=== PATIENT | male | born 1970 | race Hispanic/Latino ===

== ENCOUNTER 2017-06-14 20:29 | Inpatient (IN) | payer OTHER ==
[2017-06-14] MEDS ORDERED: Lidocaine/Epi 1% 1:100000 20 ML IJ ONE (20:49)
[2017-06-14] MEDS ORDERED: Multivitamin (MVI) 10 ML, Thiamine 100 MG, Folic Acid 1 MG in Sodium Chloride 0.9% 1,00... IV ONE (21:47)
[2017-06-14] MEDS ORDERED: Sodium Chloride 0.9% 1,000 ML IV STA (21:47)
[2017-06-14] MEDS ORDERED: Tdap Vaccine 0.5 ml Vial (10-64 yrs) IM ONE ×2 (22:10→22:24)
[2017-06-14 22:18] LABS: BASO % 0.4 % (0.0-2.0); EOS # 0.1 K/uL (0.0-0.7); EOS % 1.1 % (0.0-4.0); HEMOGLOBIN 15.5 g/dL (12.0-18.0); LYMPH # 3.2 K/uL (1.0-4.3); LYMPH % 24.8 % (20.0-40.0); MEAN CELL VOLUME 93.1 fl (80.0-94.0); MEAN CORPUSCULAR HGB CONC 33.4 g/dL (33.0-37.0); MEAN PLATELET VOLUME 8.5 fl (7.2-11.7); MONO # 0.6 K/uL (0.0-0.8); MONO % 4.9 % (0.0-10.0); NEUT # 8.9 K/uL (1.8-7.0); NEUT % 68.8 % (50.0-75.0); NRBC % 0.1 % (0.0-0.0); RBC 4.99 Mil/uL (4.40-5.90); RED CELL DISTRIBUTION WIDTH 13.1 % (11.5-14.5); WHITE BLOOD COUNT 12.9 K/uL (4.8-10.8)
[2017-06-14] MEDS ORDERED: Lidocaine 1% w Epi 1:100,000 Inj ONE (22:19)
--- NOTE | 2017-06-14 22:20 | ED PDOC ---
HPI: Psych/Substance Abuse Time Seen by Provider: 06/14/17 20:40 Chief Complaint (Nursing): Alcohol Ingestion Chief Complaint (Provider): ETOH History Per: EMS History/Exam Limitations: intoxication Additional Complaint(s): 46 y/o male brought in by EMS for alcohol intoxication. Patient had witnessed fall and EMS was called to find patient intoxicated with chin laceration. HPI limited due to patients current state. Past Medical History Reviewed: Historical Data, Nursing Documentation, Vital Signs Vital Signs: Last Vital Signs Temp 98.0 F 06/14/17 20:30 Pulse 105 H 06/14/17 20:30 Resp 16 06/14/17 20:30 BP 131/88 06/14/17 20:30 Pulse Ox 98 06/14/17 20:30 - Family History Family History: States: No Known Family Hx - Home Medications Home Medications: Ambulatory Orders Medication Instructions Recorded Unobtainable 06/15/17 - Allergies Allergies/Adverse Reactions: Allergies Allergy/AdvReac Type Severity Reaction Status Date / Time Unobtainable Allergy Verified 06/14/17 20:33 Review of Systems Review Of Systems: ROS cannot be obtained secondary to pt's inabilty to answer questions. Physical Exam - Reviewed Nursing Documentation Reviewed: Yes Vital Signs Reviewed: Yes - Physical Exam Appears: Positive for: Well, Non-toxic, Uncomfortable (agitated; swinging arms) Head Exam: Positive for: ATRAUMATIC, NORMAL INSPECTION, NORMOCEPHALIC Skin: Positive for: Rash (1.5cm chin laceration; no active bleeding or surrounding hematoma) Eye Exam: Positive for: Normal appearance, EOMI, PERRL ENT: Positive for: Normal ENT Inspection Cardiovascular/Chest: Positive for: Regular Rate, Rhythm Respiratory: Positive for: Normal Breath Sounds Gastrointestinal/Abdominal: Positive for: Normal Exam Back: Positive for: Normal Inspection Extremity: Positive for: Normal ROM Neurologic/Psych: Positive for: Alert - Laboratory Results Result Diagrams: 06/15/17 04:30 06/15/17 04:30 - ECG O2 Sat by Pulse Oximetry: 98 Pulse Ox Interpretation: Normal - Radiology X-Ray: Viewed By Il X-Ray Interpretation: No Acute Disease - Progress ED Course And Treament: Patient swinging at ED staff, attempting to get out of stretcher with unsteady gait. Patient unable to comply with alternative measures offered due to intoxication; placed in 4 point restraints and medicated for agitation/safety. Patient actively vomiting, bright red blood noted in vomitus. IV protonix, IV fluids ordered Dr. Torres spoke with Dr. Lujan, Hospitalist on-call, regarding placement in ICU Dr. Torres spoke with Dr. Erickson for GI consult. Chin laceration irrigated with 150mL NS. Area anesthetized with 1% lido with epi. 5 size 5'0 nylon sutures placed. Bacitacin and bandage applied. Adacel IM ordered EXAM: CT Head Without Intravenous Contrast EXAM DATE/TIME: 06/14/2017 8:49 PM CLINICAL HISTORY: 46 years old, male; Injury or trauma; Fall; Initial encounter; Blunt trauma ( contusions or hematomas); Additional info: ETOH, fall TECHNIQUE: Axial computed tomography images of the head/brain without intravenous contrast. All CT scans at this facility use one or more dose reduction techniques, viz.: automated exposure control; ma/kV adjustment per patient size (including targeted exams where dose is matched to indication; i.e. head); or iterative reconstruction technique. Coronal and sagittal reformatted images were created and reviewed. COMPARISON: There are no prior studies for comparison. FINDINGS: Artifacts: Motion artifact degrades image quality. Brain: Ventricles are normal in size and configuration. There is no midline shift. There are no intraaxial or extra-axial mass lesions or areas of hemorrhage. There are no abnormal fluid collections. Vital-white differentiation is maintained. Ventricles: See above. Bones: Cranial vault is intact. Soft tissues: unremarkable Sinuses: There is maxillary, ethmoid and frontal sinusitis Ears and mastoids: Middle ears and mastoids are unremarkable Orbits: Orbital contents are unremarkable. IMPRESSION: Slightly limited by patient motion, no acute intracranial abnormality; sinusitis Patient fiance at bedside, states he used to drink frequently, but for the last 2 months he has not been drinking. - Critical Care Total Time (In Min): 60 Disposition - Clinical Impression Clinical Impression: Hematemesis, ETOH abuse, Chin laceration - Disposition Disposition Time: 22:10 Condition: GUARDED
[2017-06-14 22:30] LABS: INR 0.9 (0.9-1.2); PARTIAL THROMBOPLASTIN TIME 35.9 Seconds (25.6-37.1); PROTHROMBIN TIME 10.1 Seconds (9.8-13.1)
[2017-06-14 22:32] LABS: ALB/GLOB RATIO 1.3 (1.0-2.1); ALBUMIN 4.6 g/dL (3.5-5.0); ALT/SGPT 55 U/L (21-72); AST/SGOT 61 U/L (17-59); BLOOD UREA NITROGEN 19 mg/dl (9-20); CALCIUM 9.4 mg/dL (8.4-10.2); GFR AFRICAN-AMERICAN > 60; GFR NON-AFRICAN AMERICAN > 60
[2017-06-14] MEDS: Pantoprazole 40 MG in Sodium Chloride 0.9% 100 ML IV SCH (23:06)
--- NOTE | 2017-06-14 23:09 | CP.PCM.HP ---
History of Present Illness - History of Present Illness History of Present Illness: CC: EtOH intoxication, hematemesis HPI: This is a 46 y/o male brought in by EMS after he had a witnessed fall. He was intoxicated, and had a chin lac on admission. Patient was initially very agitated and required sedation. Currently he is sedated, and not able to provide any history. ROS: unable to provide MHx/SHx: EtOH abuse, other than that none can be obtained Allergies: unobtainable Medications: unobtainable Family Hx: unobtainable Social Hx: obviously EtOH abuse, otherwise, cannot be obtained Present on Admission - Present on Admission Any Indicators Present on Admission: No Past Patient History - Infectious Disease Hx of Infectious Diseases: None - Past Social History Smoking Status: Unknown If Ever Smoked - PSYCHIATRIC Hx Substance Use: No (unknown) Meds Allergies/Adverse Reactions: Allergies Allergy/AdvReac Type Severity Reaction Status Date / Time Unobtainable Allergy Verified 06/14/17 20:33 Physical Exam - Constitutional Additional comments: sedated, rousable - Head Exam Additional comments: chin lac - Eye Exam Eye Exam: EOMI, PERRL - ENT Exam ENT Exam: Mucous Membranes Moist - Neck Exam Neck exam: Positive for: Full Rom - Respiratory Exam Respiratory Exam: Clear to Auscultation Bilateral, NORMAL BREATHING PATTERN - Cardiovascular Exam Cardiovascular Exam: Tachycardia, +S1, +S2 - GI/Abdominal Exam GI & Abdominal Exam: Normal Bowel Sounds, Soft - Extremities Exam Extremities exam: Positive for: full ROM, normal inspection - Neurological Exam Neurological exam: Alert, CN II-XII Intact, Oriented x3 - Psychiatric Exam Psychiatric exam: Normal Affect, Normal Mood - Skin Skin Exam: Dry, Warm Results - Vital Signs Recent Vital Signs: Last Vital Signs Temp 98.0 F 06/14/17 20:30 Pulse 105 H 06/14/17 20:30 Resp 16 06/14/17 20:30 BP 131/88 06/14/17 20:30 Pulse Ox 98 06/14/17 23:01 - Labs Result Diagrams: 06/14/17 22:00 06/14/17 22:00 Labs: Laboratory Results - last 24 hr 06/14/17 06/14/17 06/14/17 21:51 22:00 22:00 WBC 12.9 H RBC 4.99 Hgb 15.5 Hct 46.5 MCV 93.1 MCH 31.0 MCHC 33.4 RDW 13.1 Plt Count 243 MPV 8.5 Neut % (Auto) 68.8 Lymph % (Auto) 24.8 [place] % (Auto) 4.9 Eos % (Auto) 1.1 Baso % (Auto) 0.4 Neut # (Auto) 8.9 H Lymph # (Auto) 3.2 [place] # (Auto) 0.6 Eos # (Auto) 0.1 Baso # (Auto) 0.0 PT INR APTT Sodium 148 Potassium 4.5 Chloride 106 Carbon Dioxide 21 L Anion Gap 26 H BUN 19 Creatinine 1.0 Est GFR ( Amer) > 60 Est GFR (Non-Af Amer) > 60 POC Glucose (mg/dL) 97 Random Glucose 109 Calcium 9.4 Total Bilirubin 0.6 AST 61 H ALT 55 Alkaline Phosphatase 54 Total Protein 8.3 H Albumin 4.6 Globulin 3.7 Albumin/Globulin Ratio 1.3 Alcohol, Quantitative 404 H* BBK History Checked 06/14/17 06/14/17 22:05 22:08 WBC RBC Hgb Hct MCV MCH MCHC RDW Plt Count MPV Neut % (Auto) Lymph % (Auto) [place] % (Auto) Eos % (Auto) Baso % (Auto) Neut # (Auto) Lymph # (Auto) [place] # (Auto) Eos # (Auto) Baso # (Auto) PT 10.1 INR 0.9 APTT 35.9 Sodium Potassium Chloride Carbon Dioxide Anion Gap BUN Creatinine Est GFR ( Amer) Est GFR (Non-Af Amer) POC Glucose (mg/dL) Random Glucose Calcium Total Bilirubin AST ALT Alkaline Phosphatase Total Protein Albumin Globulin Albumin/Globulin Ratio Alcohol, Quantitative BBK History Checked No verified bt - Imaging and Cardiology CT scan - head Status: Pending Chest x-ray Status: Image reviewed by me (unremarkable) Assessment & Plan (1) Hematemesis Assessment and Plan: 46 y/o male, likely with heavy EtOH use who comes in intoxicated and with hematemesis; cannot r/o variceal bleeding -Admit ICU -NPO, IVF -- banana bag x 1, then LR -Started protonix and octreotide gtt -Started Ceftriaxone for prophylaxis in setting of hematemeisis -Zofran for n/v -Repeat CBC in ~5-6 hours; patient is type/screened -GI consult for AM -SCDs only for DVT PPx Status: Acute (2) Elevated ETOH level Status: Acute (3) ETOH abuse Status: Acute
[2017-06-15] MEDS ORDERED: cefTRIAXone (Rocephin) 1 gm Inj ONE (00:30)
--- NOTE | 2017-06-15 01:25 | CT ---
EXAM: CT Head Without Intravenous Contrast EXAM DATE/TIME: 06/14/2017 8:49 PM CLINICAL HISTORY: 46 years old, male; Injury or trauma; Fall; Initial encounter; Blunt trauma (contusions or hematomas); Additional info: ETOH, fall TECHNIQUE: Axial computed tomography images of the head/brain without intravenous contrast. All CT scans at this facility use one or more dose reduction techniques, viz.: automated exposure control; ma/kV adjustment per patient size (including targeted exams where dose is matched to indication; i.e. head); or iterative reconstruction technique. Coronal and sagittal reformatted images were created and reviewed. COMPARISON: There are no prior studies for comparison. FINDINGS: Artifacts: Motion artifact degrades image quality. Brain: Ventricles are normal in size and configuration. There is no midline shift. There are no intra-axial or extra-axial mass lesions or areas of hemorrhage. There are no abnormal fluid collections. Vital-white differentiation is maintained. Ventricles: See above. Bones: Cranial vault is intact. Soft tissues: unremarkable Sinuses: There is maxillary, ethmoid and frontal sinusitis Ears and mastoids: Middle ears and mastoids are unremarkable Orbits: Orbital contents are unremarkable. IMPRESSION: Slightly limited by patient motion, no acute intracranial abnormality; sinusitis
[2017-06-15 02:02] VITALS: BMI 27.6
[2017-06-15] MEDS: Pantoprazole 40 MG in Sodium Chloride 0.9% 100 ML IV SCH (03:25)
[2017-06-15 05:18] LABS: BLOOD UREA NITROGEN 14 mg/dl (9-20); GFR AFRICAN-AMERICAN > 60; GFR NON-AFRICAN AMERICAN > 60
[2017-06-15 05:19] LABS: CALCIUM 8.2 mg/dL (8.4-10.2)
[2017-06-15 05:27] LABS: HEMOGLOBIN 14.2 g/dL (12.0-18.0); MEAN CELL VOLUME 93.6 fl (80.0-94.0); MEAN CORPUSCULAR HEMOGLOBIN 31.2 pg (27.0-31.0); MEAN CORPUSCULAR HGB CONC 33.4 g/dL (33.0-37.0); RBC 4.55 Mil/uL (4.40-5.90); RED CELL DISTRIBUTION WIDTH 13.3 % (11.5-14.5)
--- NOTE | 2017-06-15 08:01 | CP.CCUPN ---
CCU Subjective - Physician Review Subjective (Free Text): 46M admitted with ETOH intoxication, and s/p fall, CT Head negative, had + hematemesis in ER, upgraded to ICU overnight for observation, no further hematemesis, arousable from sleep; denies any nausea / vomiting nor abdominal pain now. Poor historian and uncooperative, required Haldol overnight for sedation, now on 1:1 and GF is at the bedside as well. GF/Fianc states he recently resumed ETOH after stopping for 2 months, possible binge drinking this episode. Denies any h/o of previous UGI bleeding. Remains on Octreotide and PPi drip, serial HGb results reviewed. Other Vitals and I/Os reviewed. No Fever spikes overnight. ROS: No other pertinent negs or positives on 10+ system review. Allergies; NKDA Home meds: None PMSFH: All other historical Nursing and physician documentation reviewed to date; no new pertinent info noted relevant to current medical problems. CXR and CT head unable to be accessed due to PACS failure. EXAM- HEENT: no icterus, no gaze preference, pupils equal and reactive, no icterus NECK: No JVD, supple, carotids equal upstroke bilat/no bruits CHEST: decreased BS bases, otherwise clear bilat, no wheezes audible HEART: regular distant, S1S2, no rubs. ABD: soft, no distention, no tympany, no palp tenderness, BS hypoactive EXT: No edema. No peripheral/ digital cyanosis, no calf tenderness or palpable cords, distal pulses intact and symmetrical. NEURO: no gross focal motor deficits SKIN: no rashes, warm and dry. LABS: WBC= 8.0 HGB= 14.2 PLTs= 211K COAGS normal Na= 147 K= 4.6 CL= 108 HCO3= 23 BUN/Cr= 14/1.0 BS= 127 MAJOR PROBLEMS: 1. UGI Bleed, r/o ETOH gastritis, vs portal hypertensive bleed 2. Azotemia 3. ETOH Intoxication PLAN; 1. Serial HGB, IVF hydration. PPI drip and Octreotide pending GI eval. 2. Empiric abx coverage noted. 3. Hep ABC screen, US abdomen. CCU Objective - Vital Signs / Intake & Output Vital Signs (Last 4 hours): Vital Signs Pulse Resp BP Pulse Ox 06/15/17 06:00 104 H 17 94/59 L 96 06/15/17 05:51 98 Intake and Output (Last 8hrs): Intake & Output 06/14/17 06/15/17 06/15/17 22:59 06:59 14:59 Intake Total 750 Output Total 250 Balance 500 Weight 170 lb 182 lb Intake: IV 750 Output: Urine 250 Urine, Voided 250 - Medications Active Medications: Active Medications Generic Name Dose Route Start Last Admin Trade Name Freq PRN Reason Stop Dose Admin Pantoprazole Sodium 40 mg/ 100 mls @ 20 mls/hr 06/14/17 22:15 06/15/17 03:25 Sodium Chloride IV 20 mls/hr .Q5H SYLVIE Administration 8 MG/HR Ceftriaxone Sodium 1 gm/ 100 mls @ 100 mls/hr 06/15/17 09:00 Dextrose IVPB DAILY SYLVIE Protocol Octreotide Acetate 1,250 mcg/ 252.5 mls @ 10.1 mls/hr 06/14/17 23:00 00:42 Sodium Chloride IV 10.1 mls/hr .Q24H SYLVIE Administration 50 MCG/HR Lactated Ringer's 1,000 mls @ 100 mls/hr 06/14/17 23:00 Lactated Ringer's IV 06/15/17 18:59 .Q10H SYLVIE Influenza Virus Vaccine 0.5 ml 06/15/17 09:00 Afluria (Pf)(18yr & Older) IM 06/15/17 09:01 .ONCE ONE Lorazepam 1 mg 06/15/17 07:50 Ativan IVP Q4 PRN Symptoms of alcohol withdrawl Ondansetron HCl 4 mg 06/14/17 23:00 Zofran Inj IVP Q4 PRN Nausea/Vomiting Pneumococcal Polyvalent Vaccine 0.5 ml 06/15/17 09:00 Pneumovax 23 Vaccine IM 06/15/17 09:01 .ONCE ONE - Patient Studies Lab Studies: Lab Studies 06/15/17 06/15/17 06/14/17 Range/Units 04:30 04:30 22:08 WBC 8.0 (4.8-10.8) K/uL RBC 4.55 (4.40-5.90) Mil/uL Hgb 14.2 (12.0-18.0) g/dL Hct 42.6 (35.0-51.0) % MCV 93.6 (80.0-94.0) fl MCH 31.2 H (27.0-31.0) pg MCHC 33.4 (33.0-37.0) g/dL RDW 13.3 (11.5-14.5) % Plt Count 211 (130-400) K/uL MPV (7.2-11.7) fl Neut % (Auto) (50.0-75.0) % Lymph % (Auto) (20.0-40.0) % [place] % (Auto) (0.0-10.0) % Eos % (Auto) (0.0-4.0) % Baso % (Auto) (0.0-2.0) % Neut # (Auto) (1.8-7.0) K/uL Lymph # (Auto) (1.0-4.3) K/uL [place] # (Auto) (0.0-0.8) K/uL Eos # (Auto) (0.0-0.7) K/uL Baso # (Auto) (0.0-0.2) K/uL PT 10.1 (9.8-13.1) Seconds INR 0.9 (0.9-1.2) APTT 35.9 (25.6-37.1) Seconds Sodium 147 (132-148) mmol/l Potassium 4.6 (3.6-5.0) MMOL/L Chloride 108 H (98-107) mmol/L Carbon Dioxide 23 (22-30) mmol/L Anion Gap 21 H (10-20) BUN 14 (9-20) mg/dl Creatinine 1.0 (0.8-1.5) mg/dl Est GFR ( Amer) > 60 Est GFR (Non-Af Amer) > 60 POC Glucose (mg/dL) (65-110) mg/dL Random Glucose 127 H (75-110) mg/dL Calcium 8.2 L (8.4-10.2) mg/dL Total Bilirubin (0.2-1.3) mg/dl AST (17-59) U/L ALT (21-72) U/L Alkaline Phosphatase (38-126) U/L Total Protein (6.3-8.2) G/DL Albumin (3.5-5.0) g/dL Globulin (2.2-3.9) gm/dL Albumin/Globulin Ratio (1.0-2.1) Alcohol, Quantitative (0-10) mg/dl Blood Type Antibody Screen BBK History Checked 06/14/17 06/14/17 06/14/17 Range/Units 22:05 22:00 22:00 WBC 12.9 H (4.8-10.8) K/uL RBC 4.99 (4.40-5.90) Mil/uL Hgb 15.5 (12.0-18.0) g/dL Hct 46.5 (35.0-51.0) % MCV 93.1 (80.0-94.0) fl MCH 31.0 (27.0-31.0) pg MCHC 33.4 (33.0-37.0) g/dL RDW 13.1 (11.5-14.5) % Plt Count 243 (130-400) K/uL MPV 8.5 (7.2-11.7) fl Neut % (Auto) 68.8 (50.0-75.0) % Lymph % (Auto) 24.8 (20.0-40.0) % [place] % (Auto) 4.9 (0.0-10.0) % Eos % (Auto) 1.1 (0.0-4.0) % Baso % (Auto) 0.4 (0.0-2.0) % Neut # (Auto) 8.9 H (1.8-7.0) K/uL Lymph # (Auto) 3.2 (1.0-4.3) K/uL [place] # (Auto) 0.6 (0.0-0.8) K/uL Eos # (Auto) 0.1 (0.0-0.7) K/uL Baso # (Auto) 0.0 (0.0-0.2) K/uL PT (9.8-13.1) Seconds INR (0.9-1.2) APTT (25.6-37.1) Seconds Sodium 148 (132-148) mmol/l Potassium 4.5 (3.6-5.0) MMOL/L Chloride 106 (98-107) mmol/L Carbon Dioxide 21 L (22-30) mmol/L Anion Gap 26 H (10-20) BUN 19 (9-20) mg/dl Creatinine 1.0 (0.8-1.5) mg/dl Est GFR ( Amer) > 60 Est GFR (Non-Af Amer) > 60 POC Glucose (mg/dL) (65-110) mg/dL Random Glucose 109 (75-110) mg/dL Calcium 9.4 (8.4-10.2) mg/dL Total Bilirubin 0.6 (0.2-1.3) mg/dl AST 61 H (17-59) U/L ALT 55 (21-72) U/L Alkaline Phosphatase 54 (38-126) U/L Total Protein 8.3 H (6.3-8.2) G/DL Albumin 4.6 (3.5-5.0) g/dL Globulin 3.7 (2.2-3.9) gm/dL Albumin/Globulin Ratio 1.3 (1.0-2.1) Alcohol, Quantitative 404 H* (0-10) mg/dl Blood Type A POSITIVE Antibody Screen Negative BBK History Checked No verified bt 06/14/17 Range/Units 21:51 WBC (4.8-10.8) K/uL RBC (4.40-5.90) Mil/uL Hgb (12.0-18.0) g/dL Hct (35.0-51.0) % MCV (80.0-94.0) fl MCH (27.0-31.0) pg MCHC (33.0-37.0) g/dL RDW (11.5-14.5) % Plt Count (130-400) K/uL MPV (7.2-11.7) fl Neut % (Auto) (50.0-75.0) % Lymph % (Auto) (20.0-40.0) % [place] % (Auto) (0.0-10.0) % Eos % (Auto) (0.0-4.0) % Baso % (Auto) (0.0-2.0) % Neut # (Auto) (1.8-7.0) K/uL Lymph # (Auto) (1.0-4.3) K/uL [place] # (Auto) (0.0-0.8) K/uL Eos # (Auto) (0.0-0.7) K/uL Baso # (Auto) (0.0-0.2) K/uL PT (9.8-13.1) Seconds INR (0.9-1.2) APTT (25.6-37.1) Seconds Sodium (132-148) mmol/l Potassium (3.6-5.0) MMOL/L Chloride (98-107) mmol/L Carbon Dioxide (22-30) mmol/L Anion Gap (10-20) BUN (9-20) mg/dl Creatinine (0.8-1.5) mg/dl Est GFR ( Amer) Est GFR (Non-Af Amer) POC Glucose (mg/dL) 97 (65-110) mg/dL Random Glucose (75-110) mg/dL Calcium (8.4-10.2) mg/dL Total Bilirubin (0.2-1.3) mg/dl AST (17-59) U/L ALT (21-72) U/L Alkaline Phosphatase (38-126) U/L Total Protein (6.3-8.2) G/DL Albumin (3.5-5.0) g/dL Globulin (2.2-3.9) gm/dL Albumin/Globulin Ratio (1.0-2.1) Alcohol, Quantitative (0-10) mg/dl Blood Type Antibody Screen BBK History Checked Laboratory Results - last 24 hr 06/14/17 06/14/17 06/14/17 21:51 22:00 22:00 WBC 12.9 H RBC 4.99 Hgb 15.5 Hct 46.5 MCV 93.1 MCH 31.0 MCHC 33.4 RDW 13.1 Plt Count 243 MPV 8.5 Neut % (Auto) 68.8 Lymph % (Auto) 24.8 [place] % (Auto) 4.9 Eos % (Auto) 1.1 Baso % (Auto) 0.4 Neut # (Auto) 8.9 H Lymph # (Auto) 3.2 [place] # (Auto) 0.6 Eos # (Auto) 0.1 Baso # (Auto) 0.0 PT INR APTT Sodium 148 Potassium 4.5 Chloride 106 Carbon Dioxide 21 L Anion Gap 26 H BUN 19 Creatinine 1.0 Est GFR ( Amer) > 60 Est GFR (Non-Af Amer) > 60 POC Glucose (mg/dL) 97 Random Glucose 109 Calcium 9.4 Total Bilirubin 0.6 AST 61 H ALT 55 Alkaline Phosphatase 54 Total Protein 8.3 H Albumin 4.6 Globulin 3.7 Albumin/Globulin Ratio 1.3 Alcohol, Quantitative 404 H* Blood Type Antibody Screen BBK History Checked 06/14/17 06/14/17 06/15/17 22:05 22:08 04:30 WBC 8.0 RBC 4.55 Hgb 14.2 Hct 42.6 MCV 93.6 MCH 31.2 H MCHC 33.4 RDW 13.3 Plt Count 211 MPV Neut % (Auto) Lymph % (Auto) [place] % (Auto) Eos % (Auto) Baso % (Auto) Neut # (Auto) Lymph # (Auto) [place] # (Auto) Eos # (Auto) Baso # (Auto) PT 10.1 INR 0.9 APTT 35.9 Sodium Potassium Chloride Carbon Dioxide Anion Gap BUN Creatinine Est GFR ( Amer) Est GFR (Non-Af Amer) POC Glucose (mg/dL) Random Glucose Calcium Total Bilirubin AST ALT Alkaline Phosphatase Total Protein Albumin Globulin Albumin/Globulin Ratio Alcohol, Quantitative Blood Type A POSITIVE Antibody Screen Negative BBK History Checked No verified bt 06/15/17 04:30 WBC RBC Hgb Hct MCV MCH MCHC RDW Plt Count MPV Neut % (Auto) Lymph % (Auto) [place] % (Auto) Eos % (Auto) Baso % (Auto) Neut # (Auto) Lymph # (Auto) [place] # (Auto) Eos # (Auto) Baso # (Auto) PT INR APTT Sodium 147 Potassium 4.6 Chloride 108 H Carbon Dioxide 23 Anion Gap 21 H BUN 14 Creatinine 1.0 Est GFR ( Amer) > 60 Est GFR (Non-Af Amer) > 60 POC Glucose (mg/dL) Random Glucose 127 H Calcium 8.2 L Total Bilirubin AST ALT Alkaline Phosphatase Total Protein Albumin Globulin Albumin/Globulin Ratio Alcohol, Quantitative Blood Type Antibody Screen BBK History Checked Fingerstick Blood Sugar Results: 97 Review of Systems - Review of Systems All systems: reviewed and no additional remarkable complaints except (as above) Critical Care Progress Note - Nutrition Nutrition: Nutrition Category Date Time Status NPO Diet [DIET] Diets 06/14/17 Breakfast Active
[2017-06-15] MEDS: Lactated Ringer's 1,000 ML IV SCH ×2 (08:38→22:32)
[2017-06-15] MEDS ORDERED: Pneumococcal 23-Valent Vaccine IM ONE (09:00)
[2017-06-15] MEDS ORDERED: Pantoprazole 40 MG in Sodium Chloride 0.9% 100 ML IV SCH (09:00)
[2017-06-15] MEDS ORDERED: Influenza Vaccine 18yr & older 0.5 ML/45 MCG SYR IM ONE (09:00)
--- NOTE | 2017-06-15 11:31 | RAD ---
HISTORY: SOB COMPARISON: No prior. FINDINGS: LUNGS: No active pulmonary disease. PLEURA: No significant pleural effusion identified, no pneumothorax apparent. CARDIOVASCULAR: Normal. OSSEOUS STRUCTURES: No significant abnormalities. VISUALIZED UPPER ABDOMEN: Normal. OTHER FINDINGS: None. IMPRESSION: No interval acute cardiopulmonary disease appreciated.
--- NOTE | 2017-06-15 11:33 | CP.PCM.PN ---
Subjective - Date & Time of Evaluation Date of Evaluation: 06/15/17 Time of Evaluation: 11:00 - Subjective Subjective: Pt is lethargic but easily arousable answers questions appropriately Fiancee at bedside - states pt sometimes drinks heavily during the weekend , does not drinle alcohol everyday denies CP no SOB no abd pain complains of pain buttock area where he has a small boil w/c started a few days ago moves all extremities , denies extremity pain , no vertebral pain, no headache Objective - Vital Signs/Intake and Output Vital Signs (last 24 hours): Temp Pulse Resp BP Pulse Ox 97.9 F 96 H 14 81/48 L 95 06/15/17 08:00 06/15/17 10:00 06/15/17 10:00 06/15/17 10:00 06/15/17 10:00 Intake and Output: 06/15/17 06/15/17 06:59 18:59 Intake Total 750 300 Output Total 250 600 Balance 500 -300 - Medications Medications: Current Medications Chlordiazepoxide (Librium) 50 mg PO Q8 SYLVIE Folic Acid (Folic Acid) 1 mg PO DAILY SYLVIE Ceftriaxone Sodium 1 gm/ (Dextrose) 100 mls @ 100 mls/hr IVPB DAILY SYLVIE PRN Reason: Protocol Last Admin: 06/15/17 10:34 Dose: 100 mls/hr Octreotide Acetate 1,250 mcg/ (Sodium Chloride) 252.5 mls @ 10.1 mls/hr IV .Q24H SYLVIE PRN Reason: 50 MCG/HR Last Admin: 06/15/17 00:42 Dose: 10.1 mls/hr Lactated Ringer's (Lactated Ringer's) 1,000 mls @ 100 mls/hr IV .Q10H SYLVIE Stop: 06/15/17 18:59 Last Admin: 06/15/17 08:38 Dose: 100 mls/hr Pantoprazole Sodium 40 mg/ (Sodium Chloride) 100 mls @ 20 mls/hr IV Q5H SYVLIE Last Admin: 06/15/17 10:33 Dose: 20 mls/hr Lorazepam (Ativan) 1 mg IVP Q4 PRN PRN Reason: Symptoms of alcohol withdrawl Ondansetron HCl (Zofran Inj) 4 mg IVP Q4 PRN PRN Reason: Nausea/Vomiting Thiamine HCl (Vitamin B1 Tab) 100 mg PO DAILY SYLVIE - Labs Labs: 06/15/17 04:30 06/15/17 04:30 PT 10.1 Seconds (9.8-13.1) 06/14/17 22:08 INR 0.9 (0.9-1.2) 06/14/17 22:08 APTT 35.9 Seconds (25.6-37.1) 06/14/17 22:08 - Constitutional Appears: No Acute Distress, Other (lethargic) - Head Exam Head Exam: NORMOCEPHALIC Additional comments: laceration chin with sutures able to open mouth - no pain no tenderness of TMJ - Eye Exam Eye Exam: EOMI, Normal appearance, PERRL Pupil Exam: NORMAL ACCOMODATION - ENT Exam ENT Exam: Mucous Membranes Dry, Normal External Ear Exam - Neck Exam Neck Exam: Full ROM. absent: Meningismus - Respiratory Exam Respiratory Exam: NORMAL BREATHING PATTERN. absent: Rales, Wheezes, Respiratory Distress - Cardiovascular Exam Cardiovascular Exam: REGULAR RHYTHM, +S1, +S2 - GI/Abdominal Exam GI & Abdominal Exam: Soft, Normal Bowel Sounds. absent: Tenderness - Extremities Exam Extremities Exam: Full ROM, Normal Capillary Refill, Normal Inspection. absent : Calf Tenderness, Pedal Edema, Tenderness - Back Exam Back Exam: absent: CVA tenderness (L), CVA tenderness (R), Full ROM, paraspinal tenderness, vertebral tenderness - Neurological Exam Neurological Exam: Alert, Awake, CN II-XII Intact, Oriented x3 Neuro motor strength exam: Left Upper Extremity: 5, Right Upper Extremity: 5, Left Lower Extremity: 5, Right Lower Extremity: 5 - Psychiatric Exam Psychiatric exam: Flat Affect, Normal Mood - Skin Skin Exam: Dry, Normal Color, Warm Assessment and Plan - Assessment and Plan (Free Text) Assessment: 46 y/o gent , no significant PMH , Hx of Binge drinking accdg to GF, was brought in intoxicated after he was found down . His Alcohool level was elevated in the 400s. CT of the head done in ED was negative. he had a laceration on his chin which was sutured in the ED. While in the ED , he had an episode of hematemesis so he was admitted to the ICU for close monitoring. He was started on Protonix and Octreotide drip. GI was consulted. (1) UGI ? Alcohol Gastritis vs Flor Davison r/o UGI sec to Ulcer / Esoph Varcices - pt is being closely monitored in ICU - IVF , Banana bag - NPO for now until GI eval -cont protonix and octreotide gtt -cont Ceftriaxone for prophylaxis in setting of hematemeisis -Zofran for n/v -Repeat CBC in ~5-6 hours; patient is type/screened -GI consult : Dr Erickson -H/H stable so far (2) Elevated ETOH level Status: Acute accdg to pt drinks only during the weekends ? binge drinker monitor for ETOH withdrawal Thiamine and FA , Banana bag 3. Right buttock Furuncle - start IV Vanco - small furuncle likely amenable to abx 4. DVT proph SCD
[2017-06-15 12:31] LABS: BASO # 0.1 K/uL (0.0-0.2); BASO % 0.8 % (0.0-2.0); EOS % 0.5 % (0.0-4.0); HEMOGLOBIN 13.4 g/dL (12.0-18.0); LYMPH # 1.8 K/uL (1.0-4.3); LYMPH % 24.5 % (20.0-40.0); MEAN CELL VOLUME 93.4 fl (80.0-94.0); MEAN CORPUSCULAR HEMOGLOBIN 31.3 pg (27.0-31.0); MEAN CORPUSCULAR HGB CONC 33.5 g/dL (33.0-37.0); MONO # 0.4 K/uL (0.0-0.8); NEUT # 4.9 K/uL (1.8-7.0); NEUT % 68.2 % (50.0-75.0); RBC 4.27 Mil/uL (4.40-5.90); WHITE BLOOD COUNT 7.3 K/uL (4.8-10.8)
--- NOTE | 2017-06-15 15:07 | US ---
HISTORY: UGI Bleed, Chronic Alcoholism COMPARISON: None. TECHNIQUE: Sonographic evaluation of the abdomen. FINDINGS: LIVER: Measures 15.4 cm. Increased echogenicity of the liver parenchyma likely reflects diffuse fatty infiltration. No mass. No intrahepatic bile duct dilatation. GALLBLADDER: Unremarkable. No gallstones. COMMON BILE DUCT: Measures 3.6 mm. No stones. No dilatation. PANCREAS: The tail of the pancreas is obscured by overlying bowel gas with remainder unremarkable. RIGHT KIDNEY: Measures 10.9cm. Normal echogenicity. No calculus, mass, or hydronephrosis. LEFT KIDNEY: Measures 10.8cm. Normal echogenicity. No calculus, mass, or hydronephrosis. SPLEEN: Normal in size and contour. No mass. AORTA: No aneurysmal dilatation. IVC: Unremarkable. OTHER FINDINGS: None. IMPRESSION: Partial imaging the pancreas with remainder of the examination remarkable for likely diffuse fatty infiltration of liver.
[2017-06-15 16:49] LABS: HEPATITIS B SURFACE AG Negative (NEGATIVE)
[2017-06-15 16:55] LABS: HEPATITIS A IGM NEGATIVE (NEGATIVE); HEPATITIS B CORE AB NEGATIVE (NEGATIVE)
[2017-06-15 17:07] LABS: HEPATITIS C ANTIBODY NEGATIVE (NEGATIVE)
[2017-06-15 17:12] LABS: BARBITURATES, UR NEGATIVE (NEGATIVE); BENZODIAZEPINES, UR NEGATIVE (NEGATIVE); OPIATES, UR NEGATIVE (NEGATIVE); PHENCYCLIDINE, UR NEGATIVE (NEGATIVE)
[2017-06-15] MEDS ORDERED: Lactated Ringer's 1,000 ML IV SCH (22:15)
[2017-06-16 05:33] LABS: HEMOGLOBIN 12.8 g/dL (12.0-18.0); MEAN CELL VOLUME 93.1 fl (80.0-94.0); MEAN CORPUSCULAR HEMOGLOBIN 31.3 pg (27.0-31.0); MEAN CORPUSCULAR HGB CONC 33.6 g/dL (33.0-37.0); RBC 4.08 Mil/uL (4.40-5.90); RED CELL DISTRIBUTION WIDTH 12.8 % (11.5-14.5); WHITE BLOOD COUNT 7.2 K/uL (4.8-10.8)
[2017-06-16 05:55] LABS: BLOOD UREA NITROGEN 14 mg/dl (9-20); CALCIUM 8.7 mg/dL (8.4-10.2); GFR AFRICAN-AMERICAN > 60; GFR NON-AFRICAN AMERICAN > 60
[2017-06-16] MEDS ORDERED: Midazolam 2 MG/2 ML VIAL ONE (08:01)
[2017-06-16] MEDS ORDERED: Lidocaine PF 2% (5 ml) Inj (For Cardiac Arrhy) IV ONE (08:02)
[2017-06-16] MEDS ORDERED: Propofol 10 mg/ml Inj (20 ML) ONE (08:02)
[2017-06-16] MEDS ORDERED: Lactated Ringer's 500 ML IV ONE (08:45)
[2017-06-16] MEDS ORDERED: Pantoprazole 40 mg EC Tab PO SCH (10:30)
--- NOTE | 2017-06-16 11:33 | RAD ---
PROCEDURE: HISTORY: s/p fall 2 days ago COMPARISON: None TECHNIQUE: AP view of the pelvis and applicable frog leg views obtained. FINDINGS: Bilateral superolateral hip joint space narrowing with minimal superolateral bilateral acetabular spurring. No fracture or lytic lesions suspect. The surrounding fat planes about each femoral head neck junction appear normal IMPRESSION: Bilateral hip mild osteoarthrosis. No suspect fracture.
[2017-06-16 12:29] VITALS: BP 110/63; PULSE 87; RESP 17; TEMP 98.4; O2SAT 95
--- NOTE | 2017-06-16 12:30 | CP.PCM.DIS ---
Provider - Provider Date of Admission: 06/14/17 22:13 Attending physician: Rupesh Lujan MD Consults: GI : Dr Young Time Spent in preparation of Discharge (in minutes): 35 Diagnosis - Discharge Diagnosis (1) Hematemesis Status: Acute (2) Esophagitis Status: Acute (3) Chin laceration Status: Acute (4) Elevated ETOH level Status: Acute (5) Furuncle of buttock Status: Acute Hospital Course - Lab Results Lab Results: Most Recent Lab Values WBC 7.2 K/uL (4.8-10.8) 06/16/17 04:40 RBC 4.08 Mil/uL (4.40-5.90) L 06/16/17 04:40 Hgb 12.8 g/dL (12.0-18.0) 06/16/17 04:40 Hct 38.0 % (35.0-51.0) 06/16/17 04:40 MCV 93.1 fl (80.0-94.0) 06/16/17 04:40 MCH 31.3 pg (27.0-31.0) H 06/16/17 04:40 MCHC 33.6 g/dL (33.0-37.0) 06/16/17 04:40 RDW 12.8 % (11.5-14.5) 06/16/17 04:40 Plt Count 181 K/uL (130-400) 06/16/17 04:40 MPV 8.0 fl (7.2-11.7) 06/15/17 12:26 Neut % (Auto) 68.2 % (50.0-75.0) 06/15/17 12:26 Lymph % (Auto) 24.5 % (20.0-40.0) 06/15/17 12:26 [place] % (Auto) 6.0 % (0.0-10.0) 06/15/17 12:26 Eos % (Auto) 0.5 % (0.0-4.0) 06/15/17 12:26 Baso % (Auto) 0.8 % (0.0-2.0) 06/15/17 12:26 Neut # (Auto) 4.9 K/uL (1.8-7.0) 06/15/17 12:26 Lymph # (Auto) 1.8 K/uL (1.0-4.3) 06/15/17 12:26 [place] # (Auto) 0.4 K/uL (0.0-0.8) 06/15/17 12:26 Eos # (Auto) 0.0 K/uL (0.0-0.7) 06/15/17 12:26 Baso # (Auto) 0.1 K/uL (0.0-0.2) 06/15/17 12:26 PT 10.1 Seconds (9.8-13.1) 06/14/17 22:08 INR 0.9 (0.9-1.2) 06/14/17 22:08 APTT 35.9 Seconds (25.6-37.1) 06/14/17 22:08 Sodium 143 mmol/l (132-148) 06/16/17 04:40 Potassium 3.7 MMOL/L (3.6-5.0) 06/16/17 04:40 Chloride 105 mmol/L (98-107) 06/16/17 04:40 Carbon Dioxide 29 mmol/L (22-30) 06/16/17 04:40 Anion Gap 13 (10-20) 06/16/17 04:40 BUN 14 mg/dl (9-20) 06/16/17 04:40 Creatinine 0.8 mg/dl (0.8-1.5) 06/16/17 04:40 Est GFR ( Amer) > 60 06/16/17 04:40 Est GFR (Non-Af Amer) > 60 06/16/17 04:40 POC Glucose (mg/dL) 97 mg/dL (65-110) 06/14/17 21:51 Random Glucose 92 mg/dL (75-110) 06/16/17 04:40 Calcium 8.7 mg/dL (8.4-10.2) 06/16/17 04:40 Total Bilirubin 0.6 mg/dl (0.2-1.3) 06/14/17 22:00 AST 61 U/L (17-59) H 06/14/17 22:00 ALT 55 U/L (21-72) 06/14/17 22:00 Alkaline Phosphatase 54 U/L (38-126) 06/14/17 22:00 Total Protein 8.3 G/DL (6.3-8.2) H 06/14/17 22:00 Albumin 4.6 g/dL (3.5-5.0) 06/14/17 22:00 Globulin 3.7 gm/dL (2.2-3.9) 06/14/17 22:00 Albumin/Globulin Ratio 1.3 (1.0-2.1) 06/14/17 22:00 Urine Opiates Screen Negative (NEGATIVE) 06/15/17 16:45 Urine Methadone Screen Negative (NEGATIVE) 06/15/17 16:45 Ur Barbiturates Screen Negative (NEGATIVE) 06/15/17 16:45 Ur Phencyclidine Scrn Negative (NEGATIVE) 06/15/17 16:45 Ur Amphetamines Screen Negative (NEGATIVE) 06/15/17 16:45 U Benzodiazepines Scrn Negative (NEGATIVE) 06/15/17 16:45 U Oth Cocaine Metabols Negative (NEGATIVE) 06/15/17 16:45 U Cannabinoids Screen Negative (NEGATIVE) 06/15/17 16:45 Alcohol, Quantitative 404 mg/dl (0-10) H* 06/14/17 22:00 Hepatitis A IgM Ab Negative (NEGATIVE) 06/15/17 08:10 Hep Bs Antigen Negative (NEGATIVE) 06/15/17 08:10 Hep B Core IgM Ab Negative (NEGATIVE) 06/15/17 08:10 Hepatitis C Antibody Negative (NEGATIVE) 06/15/17 08:10 Blood Type A POSITIVE 06/14/17 22:05 Blood Type Confirm A POSITIVE 06/15/17 05:00 Antibody Screen Negative 06/14/17 22:05 BBK History Checked No verified bt 06/14/17 22:05 - Hospital Course Hospital Course: 46 y/o gent , no significant PMH , Hx of Binge drinking accdg to GF, was brought in intoxicated after he was found down . His Alcohool level was elevated in the 400s. CT of the head done in ED was negative. he had a laceration on his chin which was sutured in the ED. While in the ED , he had an episode of hematemesis so he was admitted to the ICU for close monitoring. He was started on Protonix and Octreotide drip. GI was consulted. EGD done showed Esophagitis, no active bleeding (1) UGI prob sec to Alcohol Gastritis/Esophagitis, Esophageal varices ruled out - EGD done showed some Esophagitis - pt was monitored in ICU, no further hematemesis - IVF -received protonix and octreotide gtt -received Ceftriaxone for prophylaxis in setting of hematemeisis -Zofran for n/v -GI consult : Dr Erickson -H/H stable - will d/c home on PO Protonix (2) Elevated ETOH level Status: Acute accdg to pt drinks only during the weekends ? binge drinker no signs of ETOH withdrawal Thiamine and FA , Banana bag given 3. Right buttock Furuncle - received IV Vanco while in the hospital - small furuncle likely amenable to abx- will d/c on Po [place] - pt has no fever 4. Laceration, chin follow with PMD in 1 wk for removal of stitches CT of head : negative DVT proph SCD Discharge Exam - Head Exam Head Exam: NORMAL INSPECTION, NORMOCEPHALIC Additional comments: chin laceration ( sutured) - Eye Exam Eye Exam: EOMI, Normal appearance, PERRL Pupil Exam: NORMAL ACCOMODATION - ENT Exam ENT Exam: Mucous Membranes Moist, Normal External Ear Exam - Neck Exam Neck exam: Full Rom - Respiratory Exam Respiratory Exam: NORMAL BREATHING PATTERN. absent: Respiratory Distress - Cardiovascular Exam Cardiovascular Exam: REGULAR RHYTHM, +S1, +S2 - GI/Abdominal Exam GI & Abdominal Exam: Normal Bowel Sounds, Soft. absent: Tenderness - Extremities Exam Extremities exam: full ROM, normal capillary refill, normal inspection, pedal edema, pedal pulses present - Back Exam Back exam: FULL ROM, NORMAL INSPECTION. absent: CVA tenderness (L), CVA tenderness (R), paraspinal tenderness, vertebral tenderness - Neurological Exam Neurological exam: Alert, CN II-XII Intact, Normal Gait, Oriented x3, Reflexes Normal - Psychiatric Exam Psychiatric exam: Normal Affect, Normal Mood - Skin Skin Exam: Dry, Normal Color, Warm Additional comments: right buttock- small furuncle Discharge Plan - Discharge Medications Prescriptions: Clindamycin [Cleocin] 300 mg PO Q6 #28 cap Folic Acid 1 mg PO DAILY #30 tab Pantoprazole Sodium [Protonix] 40 mg PO DAILY #30 tablet. Thiamine [Vitamin B1 Tab] 100 mg PO DAILY #30 tab - Follow Up Plan Condition: GOOD Disposition: HOME/ ROUTINE Additional Instructions: ff up with PMD tiny Return to ED for Suture removal in 1 wk Referrals: [facility] [place] [Outside] Jossue Young MD, PhD [Staff Provider] -
--- NOTE | 2017-06-17 12:52 | CON ---
DATE: 06/16/2017 REFERRING PHYSICIAN: Rupesh Lujan MD REASON FOR CONSULTATION: Hematemesis. HISTORY OF PRESENT ILLNESS: This is a pleasant 46-year-old male who had numerous fall, intoxicated, had 2 lacerations, and GI basically was called because hematemesis in the ER. The patient feels better. No vomiting. No melena, lying in bed comfortably, and in no apparent distress. PAST MEDICAL HISTORY: As above. PAST SURGICAL HISTORY: As above. MEDICATIONS: Have been reviewed. REVIEW OF SYSTEMS: All other systems have been reviewed and negative apart from the HPI. PHYSICAL EXAMINATION: VITAL SIGNS: Here in the hospital are grossly unremarkable. GENERAL: A pleasant middle age male, lying in bed comfortably, and in no apparent distress. HEENT: Head is normocephalic. There is a chin laceration. Eyes; pupils are equally reactive to light bilaterally. No conjunctival pallor or icterus. NECK: Supple. Normal range of motion. No lymphadenopathy appreciated. LUNGS: Coarse breath sounds bilaterally. HEART: S1 and S2, regular rate and rhythm. No murmurs appreciated. ABDOMEN: Soft and nontender. Bowel sounds present. No rebound. No guarding. RECTAL: Deferred. EXTREMITIES: Pulses present bilaterally. SKIN: Warm, dry and intact. NEUROLOGIC: A and O x3. LABORATORY DATA: Labs and radiology have been reviewed. Ultrasound shows fatty liver. WBC is 7.2, hemoglobin is 12.8, hematocrit is 38, and hemoglobin dropped from 15.5. LFTs are 61/55. U-tox is negative. Alcohol level is 404. ASSESSMENT AND PLAN: This is a 46-year-old male with hematemesis likely gastritis. We will plan for endo for now. Thank you for the consult. Jossue Young MD/ PhD cc: Rupesh Lujan MD
== END 2017-06-16 15:25 | disposition home or self-care (01) | DRG 551 ==
LOC: H.ER 20:29 → EDBD 20:29 → H.ERHOLD 22:13 → H.ICU/CCU 06-15 01:08
PROVIDERS: ADMIT Internal Medicine; ATTEND Internal Medicine
PROC: 0HQ1XZZ Repair Face Skin, External Approach (ICD-10-PCS; 2017-06-14)
PROC: 3E0234Z Introduction of Serum, Toxoid and Vaccine into Muscle, Percutaneous Approach (ICD-10-PCS; 2017-06-15)
PROC: 0DB58ZX Excision of Esophagus, Via Natural or Artificial Opening Endoscopic, Diagnostic (ICD-10-PCS; 2017-06-16)
PROC: 0DB68ZX Excision of Stomach, Via Natural or Artificial Opening Endoscopic, Diagnostic (ICD-10-PCS; 2017-06-16)
PROC: 0DB98ZX Excision of Duodenum, Via Natural or Artificial Opening Endoscopic, Diagnostic (ICD-10-PCS; principal; 2017-06-16 09:00)
DX: K20.9 Esophagitis, unspecified (principal); K29.21 Alcoholic gastritis with bleeding; K92.0 Hematemesis; L02.32 Furuncle of buttock; Z78.1 Physical restraint status; W19.XXXA Unspecified fall, initial encounter; F10.129 Alcohol abuse with intoxication, unspecified; K44.9 Diaphragmatic hernia without obstruction or gangrene; Y90.8 Blood alcohol level of 240 mg/100 ml or more; K22.8 Other specified diseases of esophagus; Z23 Encounter for immunization; K31.9 Disease of stomach and duodenum, unspecified; S01.81XA Laceration without foreign body of other part of head, initial encounter; Y93.9 Activity, unspecified; Y92.9 Unspecified place or not applicable; R79.89 Other specified abnormal findings of blood chemistry

== ENCOUNTER 2017-12-31 19:34 | Emergency (ER) | payer OTHER ==
[2017-12-31 19:34] VITALS: BMI 27.6
[2017-12-31] MEDS ORDERED: Albuterol-Ipratrop 3 mg / 0.5 (3 ml) UD INH STA (20:13)
[2017-12-31] MEDS ORDERED: Sodium Chloride 0.9% 1,000 ML IV STA (20:13)
[2017-12-31] MEDS ORDERED: Promethazine/Cod 6.25mg-10mg/5ml Syr UD PO STA (20:16)
[2017-12-31] MEDS ORDERED: Alum-Mag Hydrox-Simethicone Susp (30 mL) PO STA (20:30)
[2017-12-31] MEDS ORDERED: Promethazine/Cod 6.25mg-10mg/5ml Syr UD ONE (20:32)
[2017-12-31] MEDS ORDERED: Albuterol-Ipratrop 3 mg / 0.5 (3 ml) UD ONE (20:32)
[2017-12-31] MEDS ORDERED: Alum-Mag Hydrox-Simethicone Susp (30 mL) ONE (20:33)
--- NOTE | 2017-12-31 20:52 | ED PDOC ---
HPI: SOB/CHF/COPD Time Seen by Provider: 12/31/17 19:55 Chief Complaint (Nursing): Shortness Of Breath Chief Complaint (Provider): Cough History Per: Patient History/Exam Limitations: no limitations Onset/Duration Of Symptoms: Days (x8) Current Symptoms Are (Timing): Still Present Additional Complaint(s): 47 year old male presents to the ED complaining of a cough. Patient reports that 8 days ago, he had URI symptoms of runny nose, sore throat, mild cough, and some production of greenish sputum. Since , the cough has gotten worse. Sputum has decreased and he is now having SOB due to severe episodes of intractable coughing. Patient also reports having a subjective fever, chills, and sweats but denies recent travel and known sick contacts. He states he feels a burning sensation in the chest and tightness in the chest as if he is doing vigorous exercise. Patient indicates he has been trying to rest for the last few days. Cough worsens when he lies down so he has been sitting up for the last few nights and has been having difficulty sleeping due to coughing. PMD: none Past Medical History Reviewed: Historical Data, Nursing Documentation, Vital Signs Vital Signs: Last Vital Signs Temp 97.6 F 12/31/17 19:50 Pulse 108 H 12/31/17 19:50 Resp 16 12/31/17 19:50 BP 113/78 12/31/17 19:50 Pulse Ox 97 12/31/17 19:50 - Medical History PMH: No Chronic Diseases Denies: HIV - Surgical History Surgical History: No Surg Hx - Family History Family History: States: No Known Family Hx - Social History Current smoker - smoking cessation education provided: Yes (cigars occass ionally) Alcohol: < 2 Drinks/Day Drugs: Cannabis (occassional) - Home Medications Home Medications: Ambulatory Orders Medication Instructions Recorded Pantoprazole Sodium [Protonix] 40 mg PO DAILY #30 tablet. 06/16/17 RX: Clindamycin [Cleocin] 300 mg PO Q6 #28 cap 06/16/17 RX: Folic Acid 1 mg PO DAILY #30 tab 06/16/17 RX: Thiamine [Vitamin B1 Tab] 100 mg PO DAILY #30 tab 06/16/17 Fluticasone/Salmeterol 250/50 1 puff IH Q12 #1 inhaler 12/31/17 [Advair Diskus] Promethazine HCl/Codeine 10 ml PO Q6 PRN #120 ml 12/31/17 [Prometh-Codein 6.25-10 mg/5 ml] RX: Albuterol HFA [Ventolin HFA 90 2 puff IH Q4H PRN #1 inh 12/31/17 mcg/actuation (8 g)] RX: Azithromycin 1 tab PO DAILY #4 tab 12/31/17 RX: Prednisone 50 mg PO DAILY #4 tablet 12/31/17 - Allergies Allergies/Adverse Reactions: Allergies Allergy/AdvReac Type Severity Reaction Status Date / Time No Known Allergies Allergy Verified 12/31/17 19:50 Review of Systems ROS Statement: Except As Marked, All Systems Reviewed And Found Negative (as per HPI) Constitutional: Positive for: Fever, Chills ENT: Negative for: Nose Discharge Cardiovascular: Positive for: Other (Chest tightness) Respiratory: Positive for: Cough, Shortness of Breath Physical Exam - Reviewed Nursing Documentation Reviewed: Yes Vital Signs Reviewed: Yes - Physical Exam Appears: Positive for: Uncomfortable, In Acute Distress Head Exam: Positive for: ATRAUMATIC, NORMOCEPHALIC Skin: Positive for: Warm, Dry Eye Exam: Positive for: EOMI, PERRL ENT: Positive for: Pharynx Is (clear), Pharyngeal Erythema. Negative for: Tonsillar Exudate, Tonsillar Swelling Neck: Positive for: Painless ROM, Supple Cardiovascular/Chest: Positive for: Regular Rate, Rhythm, Chest Non Tender. Ne gative for: Murmur Respiratory: Positive for: Wheezing (diffuse occassional wheeze), Respiratory Distress (mild), Other (paroxysmal fits of coughing during exam). Negative for: Rales, Rhonchi Gastrointestinal/Abdominal: Positive for: Soft. Negative for: Tenderness Back: Positive for: Normal Inspection. Negative for: Decreased ROM Extremity: Positive for: Normal ROM. Negative for: Deformity Lymphatic: Negative for: Adenopathy Neurologic/Psych: Positive for: Alert. Negative for: Motor/Sensory Deficits - Laboratory Results Result Diagrams: 12/31/17 21:01 12/31/17 21:01 - ECG ECG Rhythm: Positive for: Normal QRS, Normal ST Segment, Sinus Rhythm (normal) Rate: 87 O2 Sat by Pulse Oximetry: 97 (RA) Pulse Ox Interpretation: Normal Medical Decision Making Medical Decision Making: Initial Impression: cough; differential includes but not limited to bronchitis, pneumonia, URI, pertussis, reactive airway. Initial Plan: --ECG --CMP --Lact acid --CBC --Chest X-ray --Albuterol 9mL INH --Lidocaine 10mL PO --Aluminum hydroxide/magnesium 30mL PO --Sodium chloride 1000mL IV --Pepcid 20mg PO --Promethazine 10mL PO --Methylprednisolone 125mg IV --Blood culture --Peak flow --Influenza A B stat CXR No acute findings Labs with no emergently significant abnormalities On reevaluation pt continues to have some burning chest pain, but coughing and b reathing have improved. Pt able to continue to speak in complete sentences without difficulty. Stable for dc with followup early next week. Scribe Attestation: Documented by Jae Albright acting as a scribe for Daniella Santos MD. Provider Scribe Attestation: All medical record entries made by the Scribe were at my direction and personally dictated by me. I have reviewed the chart and agree that the record accurately reflects my personal performance of the history, physical exam, medical decision making, and the department course for this patient. I have also personally directed, reviewed, and agree with the discharge instructions and disposition. Disposition - Clinical Impression Clinical Impression: Bronchitis Counseled Patient/Family Regarding: Studies Performed, Diagnosis - Disposition Referrals: Bryan Chavis MD [Staff Provider] - 01/02/18 Disposition: Routine/Home Disposition Time: 23:12 Condition: IMPROVED Additional Instructions: REST AND DRINK PLENTY OF HYDRATING FLUIDS FOLLOW UP WITH DR CHAVIS EARLY NEXT WEEK FOR REEVALUATION AND POSSIBLE REFERRAL TO [facility]. TAKE MEDICATIONS PRESCRIBED. Prescriptions: RX: Albuterol HFA [Ventolin HFA 90 mcg/actuation (8 g)] 2 puff IH Q4H PRN #1 inh PRN Reason: ASTHMA RX: Azithromycin 1 tab PO DAILY #4 tab Fluticasone/Salmeterol 250/50 [Advair Diskus] 1 puff IH Q12 #1 inhaler RX: Prednisone 50 mg PO DAILY #4 tablet Promethazine HCl/Codeine [Prometh-Codein 6.25-10 mg/5 ml] 10 ml PO Q6 PRN #120 ml PRN Reason: SEVERE COUGH ONLY Instructions: Acute Bronchitis, Adult (DC)
[2017-12-31 21:00] VITALS: RESP 18
[2017-12-31 21:38] LABS: BASO % 0.7 % (0.0-2.0); EOS # 0.2 K/uL (0.0-0.7); EOS % 3.2 % (0.0-4.0); HEMOGLOBIN 15.6 g/dL (12.0-18.0); LYMPH # 3.1 K/uL (1.0-4.3); LYMPH % 43.5 % (20.0-40.0); MEAN CELL VOLUME 92.7 fl (80.0-94.0); MEAN CORPUSCULAR HEMOGLOBIN 31.9 pg (27.0-31.0); MEAN CORPUSCULAR HGB CONC 34.4 g/dL (33.0-37.0); MONO # 0.6 K/uL (0.0-0.8); MONO % 8.5 % (0.0-10.0); NEUT # 3.1 K/uL (1.8-7.0); NEUT % 44.1 % (50.0-75.0); RBC 4.9 Mil/uL (4.40-5.90); RED CELL DISTRIBUTION WIDTH 13.3 % (11.5-14.5)
[2017-12-31 22:10] LABS: ALB/GLOB RATIO 1.3 (1.0-2.1); ALBUMIN 4.5 g/dL (3.5-5.0); ALT/SGPT 29 U/L (21-72); AST/SGOT 32 U/L (17-59); BLOOD UREA NITROGEN 12 mg/dl (9-20); CALCIUM 9.5 mg/dL (8.4-10.2); GFR NON-AFRICAN AMERICAN > 60
[2017-12-31] MEDS ORDERED: Azithromycin 500 MG IV IVPB ONE (22:16)
[2017-12-31] MEDS ORDERED: Azithromycin 500 MG in Sodium Chloride 0.9% 250 ML IVPB STA (22:18)
[2018-01-01 01:49] VITALS: BP 122/81; PULSE 92; TEMP 98.2; O2SAT 98
--- NOTE | 2018-01-01 07:57 | CARD ---
APPROVED REPORT Date of service: 12/31/2017 EKG Measurement Heart [id number] <Conclusion> Normal sinus rhythm Normal ECG
--- NOTE | 2018-01-01 08:29 | RAD ---
Date of service: 12/31/2017 HISTORY: cough sob COMPARISON: 05/2017 TECHNIQUE: Chest PA and lateral FINDINGS: LUNGS: Frontal lateral views of the chest were obtained. No focal alveolar infiltrate is seen. No CHF is noted. There is stable mild nonspecific interstitial change when compared to the prior study. There is stable area of density noted overlying the posterior 4th rib and anterior 2nd rib when compared to prior study and probably related to bone island. PLEURA: No significant pleural effusion identified. No pneumothorax apparent. CARDIOVASCULAR: Normal. OSSEOUS STRUCTURES: No significant abnormalities. VISUALIZED UPPER ABDOMEN: Normal. OTHER FINDINGS: None. IMPRESSION: No active disease. No interval change.
== END 2017-12-31 23:50 | disposition home or self-care (01) ==
LOC: H.ER 19:34
DX: J40 Bronchitis, not specified as acute or chronic (principal); F17.290 Nicotine dependence, other tobacco product, uncomplicated
CPT/HCPCS: 71046; 80053; 83605; 85025; 87040; 87804; 93005; 94640; 96374; 99284; J0456; J2930; J7030